=== PATIENT | female | born 1945 | race Caucasian/White ===

== ENCOUNTER 2017-12-25 10:39 | Emergency (ER) | payer OTHER ==
[~2017-12-25] VITALS: Ht 162.6 cm; Wt 78.2 kg
[~2017-12-25 10:39] MED LIST: [UNRECOGNIZED DRUG - CODE] PO
[2017-12-25 11:36] VITALS: BP 155/73
--- NOTE | 2017-12-25 12:08 | NUR ---
Pt placed in bed 11.
--- NOTE | 2017-12-25 12:15 | NUR ---
72F BIB FAMILY C/O POSTERIOR HEADACHE WITH DIZZINESS, SHARP, RADIATES TO BACK, JAW, LEFT LEG, 08/11 X 3 DAYS. PT STATES NO TRAUMA OR INJURY TO SITE AT THIS TIME; PT STATES NO VISION CHANGES, OR VISION LOSS AT THIS TIME; PT AA&OX4, PERRLA, STATES NO N/V/D AT THIS TIME; PT STATES HAS BL LEG PAIN 9/10 D/T VARICOSE VEINS; BL LUNG SOUNDS CLEAR, RR EVEN/UNLABORED, SKIN IS WARM/DRY/INTACT AT THIS TIME; PT RESTING IN BED WITH HOB ELEVATED AND IN LOWEST POSITION; POSITIONED FOR COMFORT; ER MD MADE AWARE OF STATUS. WILL CONTINUE TO MONITOR.
--- NOTE | 2017-12-25 13:05 | NUR ---
PT AA&OX4, RR EVEN/UNLABORED, POSITIONED FOR COMFORT; FAMILY AT BEDSIDE; WILL CONTINUE TO MONITOR.
[2017-12-25 14:06] VITALS: BP 160/84
--- NOTE | 2017-12-25 14:06 | NUR ---
Patient discharged with v/s stable. Patient BP at discharge 160/84; ER MD Dr. Valenzuela notfiied and ok to discharge; Pt states no vision changes, no headache, and no blurry vision at this time. Written and verbal after care instructions given and explained. Patient alert, oriented and verbalized understanding of instructions. Ambulatory with steady gait. All questions addressed prior to discharge. ID band removed. Patient advised to follow up with PMD. Rx of FLEXERIL 5MG TAB & IBUPROFEN 800MG TAB given. Patient educated on indication of medication including possible reaction and side effects. Opportunity to ask questions provided and answered.
== END 2017-12-25 14:06 | disposition home or self-care (01) ==
LOC: MED 10:39
DX: S16.1XXA Strain of muscle, fascia and tendon at neck level, initial encounter (principal); I83.813 Varicose veins of bilateral lower extremities with pain; X58.XXXA Exposure to other specified factors, initial encounter; Y93.89 Activity, other specified; Y92.89 Other specified places as the place of occurrence of the external cause; Y99.8 Other external cause status; Z88.0 Allergy status to penicillin
CPT/HCPCS: 99283

== ENCOUNTER 2019-08-04 15:48 | Emergency (ER) | payer MEDICAID, OTHER ==
[~2019-08-04] VITALS: Ht 152.4 cm; Wt 73.7 kg
[2019-08-04 15:54] VITALS: BP 166/89
--- NOTE | 2019-08-04 16:31 | NUR ---
PT C/O LEFT LOWER BACK PAIN THAT RADIATES TO LT FOOT X20 DAYS. SHARP 10/10 PAIN, DENIES TRAUMA. INTERMITTENT SWELLING OF LT KNEE. PT DENIES NUMBNESS/TINGLING. PT ABLE TO FLEX AND EXTEND LT LOWER EXTREMITY. PT LAYING IN BED, CALM, VSS. FAMILY MEMBER AT BEDSIDE MEDHX: DENIES
[2019-08-04] MEDS ORDERED: KETOROLAC 30 MG/ML VIAL IM ONE (16:50)
[2019-08-04] MEDS ORDERED: HYDROcodone/APAP 5/325 MG 1 TAB TAB PO ONE (16:50)
--- NOTE | 2019-08-04 17:02 | NUR ---
PT TAKEN TO XRAY VIA [facility]
--- NOTE | 2019-08-04 18:52 | NUR ---
PT LAYING IN BED WITH EYES CLOSED. FAMILY MEMBER AT BEDSIDE
[2019-08-04 19:16] VITALS: BP 145/78
--- NOTE | 2019-08-04 19:16 | NUR ---
Patient discharged with v/s stable. Written and verbal after care instructions given and explained. Patient alert, oriented and verbalized understanding of instructions. Ambulatory with steady gait. All questions addressed prior to discharge. ID band removed. Patient advised to follow up with PMD. Rx of Bally given. Patient educated on indication of medication including possible reaction and side effects. Opportunity to ask questions provided and answered.
== END 2019-08-04 19:16 | disposition home or self-care (01) ==
LOC: MED 15:48
DX: M54.42 Lumbago with sciatica, left side (principal); M17.12 Unilateral primary osteoarthritis, left knee; Z88.0 Allergy status to penicillin; Z88.6 Allergy status to analgesic agent; Z79.899 Other long term (current) drug therapy; Z98.890 Other specified postprocedural states
CPT/HCPCS: 72100; 73502; 73562; 96372; 99283; J1885